=== PATIENT | female | born 1975 | race Caucasian/White ===

== ENCOUNTER 2018-03-13 12:45 | Inpatient (IN) | payer OTHER ==
[~2018-03-13] VITALS: Ht 160 cm; Wt 64.9 kg
[2018-03-18] MEDS ORDERED: DOCUSATE SODIU100 MG PO (14:51)
[2018-03-18] MEDS ORDERED: ULTRAM50 MG PO (14:51)
== END 2018-03-18 16:59 | disposition home or self-care (01) | DRG 742 ==
LOC: SURG 03-15 05:30 → O/R 03-15 05:30 → OB/GYN 03-15 11:45 → SURG 03-15 19:53
PROVIDERS: Obstetrics & Gynecology
PROC: 0UJD4ZZ Inspection of Uterus and Cervix, Percutaneous Endoscopic Approach (ICD-10-PCS; 2018-03-15)
PROC: 0UT70ZZ Resection of Bilateral Fallopian Tubes, Open Approach (ICD-10-PCS; 2018-03-15)
PROC: 0DBW0ZZ Excision of Peritoneum, Open Approach (ICD-10-PCS; 2018-03-15)
PROC: 0TN70ZZ Release Left Ureter, Open Approach (ICD-10-PCS; 2018-03-15)
PROC: 0TN60ZZ Release Right Ureter, Open Approach (ICD-10-PCS; 2018-03-15)
PROC: 0UT90ZZ Resection of Uterus, Open Approach (ICD-10-PCS; principal; 2018-03-15 11:45)
DX: D25.1 Intramural leiomyoma of uterus (principal); D62 Acute posthemorrhagic anemia; R73.01 Impaired fasting glucose; R19.04 Left lower quadrant abdominal swelling, mass and lump

== ENCOUNTER 2018-12-05 05:15 | Day surgery (SDC) | payer OTHER ==
[~2018-12-05 05:15] MED LIST: DOCUSATE SODIU100 MG PO; ULTRAM50 MG PO
[2018-12-05] MEDS ORDERED: PERCOCET 5-3251 EACH PO (09:17)
[2018-12-05] MEDS ORDERED: NEURONTIN300 MG PO (09:18)
== END 2018-12-05 11:40 | disposition home or self-care (01) ==
LOC: CIR.AMB 05:15
DX: K43.0 Incisional hernia with obstruction, without gangrene (principal); K66.0 Peritoneal adhesions (postprocedural) (postinfection)